=== PATIENT | female | born 1975 | race Caucasian/White ===

== ENCOUNTER 2019-08-19 15:52 | Emergency (ER) | payer OTHER ==
[~2019-08-19] VITALS: Ht 175.3 cm; Wt 74.8 kg
[~2019-08-19 15:52] MED LIST changes: -FLONASE 0.05%50 MCG NARES
[2019-08-19 16:38] LABS: URINE BILIRUBIN NEGATIVE (Negative); URINE BLOOD TRACE (Negative); URINE CLARITY CLEAR; URINE COLOR YELLOW; URINE GLUCOSE-RANDOM NEGATIVE (Negative); URINE KETONES NEGATIVE (Negative); URINE LEUKOCYTES-REFLEX NEGATIVE (Negative); URINE NITRITE-REFLEX NEGATIVE (Negative); URINE PROTEIN NEGATIVE (Negative); URINE SPECIFIC GRAVITY <= 1.005 (1.005-1.030); URINE UROBILINOGEN 0.2 E.U./dl (0.2-1.0)
[2019-08-19] MEDS ORDERED: FLONASE 0.05%50 MCG NARES (17:37)
[2019-08-19 17:51] VITALS: BP 149/88
--- NOTE | 2019-08-20 16:51 | EKG ---
[place] [address] ELECTROCARDIOGRAM REPORT Name: LIZETTE ROJO Room: [facility]#: [id number] Admission: 08/19/19 Attend Phys: Discharge: 08/19/19 Date of : 77 Date of Service: 08/19/19 1619 Report #: [id number] THIS REPORT FOR: //name// [facility] ED Test Date: 2019-08-19 Test Time: 16:19:43 Pat Name: LIZETTE ROJO Department: Room: Gender: F Operations Dispatcher: CHAVES : 1975 Requested By: Carisa Olvera Order Number: [id number] : Meño Alva Measurements Intervals [place] Rate: 77 P: 47 OR: 161 QRS: 19 QRSD: 85 T: 36 QT: 363 QTc: 411 Interpretive Statements Sinus rhythm Anterior infarct, old Baseline wander in lead(s) V3 Compared to ECG 08/14/2015 19:24:21 No significant changes Electronically Signed On 08-20-2019 16:50:43 CDT by Meño Alva [email or web address] <ELECTRONICALLY SIGNED> By: Meño Alva MD, [facility] 08/20/19 1650 1619 1619 Meño Alva MD, [facility] /EPI
== END 2019-08-19 17:51 | disposition home or self-care (01) ==
LOC: M.ERS 15:52
PROVIDERS: Nurse Practitioner Family
DX: R42 Dizziness and giddiness (principal); F12.10 Cannabis abuse, uncomplicated; Z88.0 Allergy status to penicillin

== ENCOUNTER → 2019-08-19 | Outpatient (CLI) | payer OTHER ==
[~2019-08-19] MED LIST: FLONASE 0.05%50 MCG NARES; LEVOTHYROXIN0.088 MG PO; MINOCIN100 MG PO
[2019-08-19 12:51] LABS: ABSOLUTE EOSINOPHILS 0.1 thou/uL (0.0-0.7); ABSOLUTE LYMPHOCYTES 2.5 thou/uL (0.8-5.3); ABSOLUTE MONOCYTES 0.7 thou/uL (0.0-1.2); ABSOLUTE NEUTROPHILS 3.9 thou/uL (1.6-8.1); BASOPHILS 0.7 %; EOSINOPHILS 0.9 %; HEMATOCRIT 48.2 % (37.0-47.0); HEMOGLOBIN 16.9 gm/dL (12.0-15.0); MCH 31.5 pg (26.0-34.0); MCHC 35.2 g/dL (28.0-37.0); MCV 89.6 fL (80.0-100.0); MONOCYTES 9.8 %; MPV 8.3 fl. (7.2-11.1); NUCLEATED RBCS 0 /100WBC; PLATELET COUNT* 257 thou/uL (150-400); POLYS 53.6 %; RBC 5.38 mil/uL (4.20-5.00); RDW-CV 13.2 % (10.5-14.5); WBC 7.2 thou/uL (4.0-11.0)
[2019-08-19 12:59] LABS: CALCIUM 8.6 mg/dL (8.5-10.1); POTASSIUM 4.2 mmol/L (3.5-5.1)
[2019-08-19 13:12] LABS: ALBUMIN 4.2 g/dL (3.4-5.0); CK-MB MASS 0.5 ng/mL (<0.5-3.6); TOTAL BILIRUBIN 0.7 mg/dL (<0.1-1.0); TOTAL PROTEIN 8.1 g/dL (6.4-8.2)
== END ==
LOC: M.LAB 12:30
PROVIDERS: ATTEND Family Medicine
DX: M25.512 Pain in left shoulder (principal); M54.9 Dorsalgia, unspecified; R06.02 Shortness of breath; R42 Dizziness and giddiness